=== PATIENT | female | born 1955 | race Two or more races ===

== ENCOUNTER 2022-02-11 06:00 | Day surgery (SDC) | payer OTHER ==
[~2022-02-11] VITALS: Ht 165.1 cm; Wt 77.1 kg
[~2022-02-11 06:00] MED LIST: ATACAND HCT 321 EAC1 PO; FOLIC A PO; LEFLUNOMIDE20 MG PO; LYRICA150 MG PO; METO PO; MULTIVITA PO; MYRBETRIQ25 MG PO; PEPCID AC20 MG PO; PREGABALIN75 MG PO; SIMVAST PO; SULFASALAZINE500 M1 PO; TOPROL XL50 M1 PO; VITAMIN D310 MCG/1 M PO; VITAMIN PO
== END 2022-02-11 14:25 | disposition home or self-care (01) ==
LOC: CIR.AMB 06:00
PROVIDERS: ATTEND Colon & Rectal Surgery
DX: R15.9 Full incontinence of feces (principal); R32 Unspecified urinary incontinence; Z20.822 Contact with and (suspected) exposure to COVID-19; I10 Essential (primary) hypertension; Z86.16 Personal history of COVID-19; E78.5 Hyperlipidemia, unspecified
CPT/HCPCS: 64581; 95971; C1778

== ENCOUNTER 2022-02-25 05:57 | Day surgery (SDC) | payer OTHER | END 2022-02-25 11:15 | disposition home or self-care (01) | LOC: CIR.AMB 05:57 | PROVIDERS: ATTEND Colon & Rectal Surgery | DX: R15.9 Full incontinence of feces (principal); R32 Unspecified urinary incontinence; Z20.822 Contact with and (suspected) exposure to COVID-19; I10 Essential (primary) hypertension; G47.33 Obstructive sleep apnea (adult) (pediatric); E11.9 Type 2 diabetes mellitus without complications; Z99.89 Dependence on other enabling machines and devices | CPT/HCPCS: 64590; 95971; C1767 ==